=== PATIENT | male | born 1990 | race Caucasian/White ===

== ENCOUNTER → 2017-09-28 11:27 | Outpatient (CLI) | payer OTHER, SELFPAY ==
--- NOTE | 2017-09-28 | DI.US.S_ITS ---
PROCEDURE: US ABDOMEN COMPLETE INDICATIONS: ABDOMINAL BLOATING LOW BACK PAIN TECHNIQUE: Real-time scanning was performed of the abdominal and retroperitoneal organs, with image documentation. COMPARISON: None. FINDINGS: Liver: Liver is normal in size and homogeneous in echotexture. Gallbladder: The gallbladder appears normal Biliary ducts: Intrahepatic bile ducts are non-dilated. Extrahepatic bile duct caliber measures 5.0 mm. Normal is 6-7 mm or less in diameter, or 10 mm or less post-cholecystectomy. Pancreas: Not seen due to overlying bowel gas Spleen: Spleen is moderately enlarged in size at 14.5 cm craniocaudad, but homogeneous in echotexture. Kidneys: Kidneys are normal in size and echotexture. Right kidney measures 11.1 cm long; left kidney measures 11.8 cm long. No hydronephrosis or nephrolithiasis. No solid masses. Aorta: Not seen due to bowel gas Iliacs: Not seen due to bowel gas IVC: Not seen due to bowel gas Miscellaneous: There is for quadrant free abdominal fluid, significant overall quantity. IMPRESSION: Significant for quadrant ascites, as in the presumptive cause of abdominal distention. Significant portions of the abdomen and pelvis are poorly visualized due to overlying bowel gas. Followup by CT scanning may be warranted. Dictated by: Aguila Perez M.D. on 09/28/2017 at 14:10 Approved by: Aguila Perez M.D. on 09/28/2017 at 14:12
== END ==
PROVIDERS: Visit Provider Internal Medicine
DX: R18.8 Other ascites (principal); R14.0 Abdominal distension (gaseous); M54.5 Low back pain
CPT/HCPCS: 76700